=== PATIENT | male | born 1955 | race Caucasian/White ===

== ENCOUNTER 2021-03-27 05:00 | Day surgery (SDC) | payer OTHER ==
[2021-03-22 14:55] VITALS: BMI 29.2
[2021-03-27] MEDS ORDERED: BUPIVACAINE HCL/PF 0.5% (5MG/ML) 10 ML VIAL ONE ×2 (10:59→12:13)
[2021-03-27] MEDS ORDERED: MIDAZOLAM HCL 2 MG/2 ML SINGLE DOSE VIAL ONE (12:18)
[2021-03-27] MEDS ORDERED: PROPOFOL 20 ML ONE ×2 (12:18→12:56)
[2021-03-27] MEDS ORDERED: ceFAZolin SODIUM 1 GM VIAL IVPB ONE (13:00)
[2021-03-27] MEDS ORDERED: ONDANSETRON 4 MG/2 ML VIAL ONE (13:01)
[2021-03-27] MEDS ORDERED: KETOROLAC TROMETHAMINE 30 MG/1 ML VIAL ONE (13:01)
[2021-03-27] MEDS ORDERED: ceFAZolin SODIUM 1 GM VIAL ONE (13:01)
[2021-03-27] MEDS ORDERED: DEXAMETHASONE SOD PHOSPHATE 4 MG/1 ML VIAL ONE (13:01)
[2021-03-27] MEDS ORDERED: LIDOCAINE 1%/EPI 1:100000 (20 ML MULTI DOSE VIAL) INF ONE (13:03)
[2021-03-27] MEDS ORDERED: ONDANSETRON 4 MG/2 ML VIAL IVPUSH PRN (13:14)
[2021-03-27] MEDS ORDERED: oxyCODONE HCL 5 MG TABLET PO PRN ×2 (13:14)
[2021-03-27] MEDS ORDERED: LACTATED RINGERS SOLUTION 1,000 ML IV SCH (13:15)
[2021-03-27] MEDS ORDERED: BUPIVACAINE HCL/PF 0.5% (5 MG/ML) 30 ML VIAL IJ ONE (13:30)
[2021-03-27 19:36] VITALS: TEMP 98
[2021-03-27 19:43] VITALS: BP 136/88; PULSE 52
== END 2021-03-27 15:30 | disposition home or self-care (01) ==
LOC: JASU-SURG 05:00
PROVIDERS: ATTEND Orthopaedic Surgery
PROC: 0MTN0ZZ Resection of Right Knee Bursa and Ligament, Open Approach (ICD-10-PCS; 2021-03-27)
PROC: 0SBC4ZZ Excision of Right Knee Joint, Percutaneous Endoscopic Approach (ICD-10-PCS; principal; 2021-03-27 13:03)
DX: M23.221 Derangement of posterior horn of medial meniscus due to old tear or injury, right knee (principal); M71.561 Other bursitis, not elsewhere classified, right knee
CPT/HCPCS: 88304-TC; 94760

== ENCOUNTER 2023-06-19 04:24 | Day surgery (SDC) | payer OTHER, BC ==
[2023-05-07 15:37] VITALS: BMI 29.2
[~2023-06-19 04:24] MED LIST: ACETAMINOPHEN 500 MG TABLET (FP) PO PRN
[2023-06-19] MEDS ORDERED: BUPIVACAINE HCL/PF 0.75% 10 ML VIAL ONE (08:12)
[2023-06-19] MEDS ORDERED: LIDOCAINE HCL/PF 1% SDV 5ML VIAL ONE (08:13)
[2023-06-19 10:56] VITALS: BP 130/70; PULSE 68; RESP 16; TEMP 97.5
[2023-06-19] MEDS ORDERED: ACETAMINOPHEN 500 MG TABLET (FP) PO PRN (10:59)
== END 2023-06-19 10:45 | disposition home or self-care (01) ==
LOC: JASU-SURG 04:24
PROVIDERS: ATTEND Pain Medicine Pain Medicine
DX: Z53.8 Procedure and treatment not carried out for other reasons (principal)

== ENCOUNTER 2023-06-26 04:22 | Day surgery (SDC) | payer OTHER, BC ==
[2023-06-25 09:49] VITALS: BMI 29.2
[2023-06-26] MEDS ORDERED: DEXAMETHASONE SOD PHOSPHATE 10 MG/1 ML VIAL ONE (07:51)
[2023-06-26] MEDS ORDERED: LIDOCAINE HCL/PF 1% SDV 5ML VIAL ONE (07:51)
[2023-06-26] MEDS ORDERED: BUPIVACAINE HCL/PF 0.75% 10 ML VIAL ONE (07:51)
[2023-06-26 10:44] VITALS: RESP 18
[2023-06-26] MEDS ORDERED: BUPIVACAINE HCL/PF 0.75% 10 ML VIAL NR ONE (12:17)
[2023-06-26] MEDS ORDERED: LIDOCAINE HCL 1% PRESERVATIVE FREE - 30ML VIAL INF ONE (12:17)
[2023-06-26] MEDS ORDERED: ACETAMINOPHEN 500 MG TABLET (FP) PO PRN (12:42)
[2023-06-26 13:54] VITALS: TEMP 97.9
[2023-06-26 13:58] VITALS: BP 140/74; PULSE 60
== END 2023-06-26 13:15 | disposition home or self-care (01) ==
LOC: JASU-SURG 04:22
PROVIDERS: ATTEND Pain Medicine Pain Medicine
PROC: 3E0T3BZ Introduction of Anesthetic Agent into Peripheral Nerves and Plexi, Percutaneous Approach (ICD-10-PCS; principal; 2023-06-26 12:30)
DX: M47.816 Spondylosis without myelopathy or radiculopathy, lumbar region (principal)
CPT/HCPCS: 76000-TC-FY; J1100

== ENCOUNTER 2025-05-04 06:52 | Day surgery (SDC) | payer OTHER, BC ==
[2025-04-27 13:02] VITALS: BMI 25.7
[2025-05-04 08:25] VITALS: RESP 18; TEMP 98
[2025-05-04] MEDS ORDERED: ACETAMINOPHEN 500 MG TABLET (FP) PO PRN ×2 (08:46→14:45)
[2025-05-04] MEDS: LIDOCAINE HCL 1% PRESERVATIVE FREE - 30ML VIAL IJ ONE ×2 (09:19)
[2025-05-04] MEDS: IOHEXOL 180 MG/1 ML ML IJ ONE ×3 (09:21→09:22)
[2025-05-04] MEDS: DEXAMETHASONE SOD PHOSPHATE 10 MG/1 ML VIAL IM ONE ×2 (09:22)
[2025-05-04 09:37] VITALS: BP 145/62; PULSE 73
== END 2025-05-04 09:40 | disposition home or self-care (01) ==
LOC: JASU-SURG 06:52
PROVIDERS: ATTEND Pain Medicine Pain Medicine
PROC: 3E0R3BZ Introduction of Anesthetic Agent into Spinal Canal, Percutaneous Approach (ICD-10-PCS; 2025-05-04)
PROC: 3E0R33Z Introduction of Anti-inflammatory into Spinal Canal, Percutaneous Approach (ICD-10-PCS; principal; 2025-05-04 09:30)
DX: M54.12 Radiculopathy, cervical region (principal)
CPT/HCPCS: 76000-TC-FY; J1100